=== PATIENT | female | born 1975 | race Caucasian/White ===

== ENCOUNTER → 2018-04-19 | Outpatient (CLI) | payer OTHER ==
[~2018-04-19] MED LIST: ADVIL200 M2 PO; BACTRIM DS TAB1 EACH PO; CITRATE OF MAG296 ML PO; COMPAZINE10 MG PO; KEFLEX500 MG PO; MACROBID 100 M100 M2 PO; MECLIZINE 25 MG25 M1 PO; NOHOMEMEDICATIONS; PHENAZOPYRIDIN200 M2 PO; VALACYCLOVIR500 MG PO
--- NOTE | 2018-04-19 11:36 | 2DMMODE ---
[place] [address] 2 D/M-MODE ECHOCARDIOGRAM Name: EDWAR CRUZ Room: [facility]#: [id number] Admission: 04/19/18 Attend Phys: Nay Ryan Discharge: Date of : 79 Date of Service: 04/19/18 1135 Report #: [id number] THIS REPORT FOR: //name// APPROVED REPORT Study performed: 04/19/2018 08:07:27 EXAM: Comprehensive 2D, Doppler, and color-flow Echocardiogram/ Bubble Study Patient Location: Out-Patient Status: routine BSA: 1.61 HR: 64 bpm BP: 115/80 mmHg Other Information Study Quality: Excellent Indications CVA/TIA Echo Enhancing Agent Indication: Rule out Shunt Agent(s) / Amount(s) Used: Agitated Saline 10 cc 2D Dimensions IVSd: 9.29 (7-11mm) LVOT Diam: 19.75 (18-24mm) LVDd: 43.62 mm PWd: 6.89 (7-11mm) Ascending Ao: 27.65 (22-36mm) LVDs: 28.81 (25-40mm) Aortic Root: 24.53 mm Volumes Left Atrial Volume (Systole) LA ESV Index: 12.50 mL/m2 Aortic Valve AoV Peak Edy.: 1.28 m/s AO Peak Gr.: 6.53 mmHg LVOT Max P.20 mmHg AO Mean Gr.: 3.58 mmHg LVOT Mean P.46 mmHg LVOT Max V: 0.89 m/s AO V2 VTI: 25.47 cm LVOT Mean V: 0.55 m/s BINU (VTI): 2.31 cm2 LVOT V1 VTI: 19.24 [place] [address] 2 D/M-MODE ECHOCARDIOGRAM Name: EDWAR CRUZ Room: [facility]#: [id number] Admission: 04/19/18 Attend Phys: Nay Ryan Discharge: Date of : 79 Date of Service: 04/19/18 1135 Report #: [id number] E/A Ratio: 1.33 MV Decel. Time: 151.25 ms MV E Max Edy.: 0.76 m/s MV PHT: 43.86 ms MVA (PHT): 5.02 cm2 TDI E/Lateral E': 4.75 E/Medial E': 5.43 Medial E' Edy.: 0.14 m/s Lateral E' Edy.: 0.16 m/s Pulmonary Valve PV Peak Edy.: 0.72 m/s PV Peak Gr.: 2.06 mmHg Tricuspid Valve RAP Estimate: 5.00 mmHg TR Peak Gr.: 14.36 mmHg RVSP: 19.36 mmHg PA Pressure: 19.36 mmHg Left Ventricle The left ventricle is normal size. There is normal LV segmental wall motion. There is normal left ventricular wall thickness. Left ventricular systolic function is normal. The left ventricular ejection fraction is within the normal range. LVEF is 55-60%. The left ventricular diastolic function is normal. Right Ventricle The right ventricle is normal size. The right ventricular systolic function is normal. Atria The left atrium size is normal. Injection of bubbles documented no interatrial shunt. The right atrium size is normal. Aortic Valve The aortic valve is normal in structure. No aortic regurgitation is present. There is no aortic valvular stenosis. Mitral Valve The mitral valve is normal in structure. There is no mitral valve regurgitation noted. No evidence of mitral valve stenosis. Tricuspid Valve The tricuspid valve is normal in structure. Trace to mild [place]icus[place] [address] 2 D/M-MODE ECHOCARDIOGRAM Name: EDWAR CRUZ Room: [facility]#: [id number] Admission: 04/19/18 Attend Phys: Nay Ryan Discharge: Date of : 79 Date of Service: 04/19/18 1135 Report #: [id number] Pulmonic Valve The pulmonary valve is normal in structure. There is no pulmonic valvular regurgitation. Great Vessels The aortic root is normal in size. IVC is normal in size and collapses >50% with inspiration. Pericardium There is no pericardial effusion. <Conclusion> LVEF is 55-60%. Injection of bubbles documented no interatrial shunt. <ELECTRONICALLY SIGNED> By: Sachin Schaeffer MD, FACC 04/19/18 1135 1135 1135 Sachin Schaeffer MD, FACC /INF
== END ==
LOC: M.CRD 07:35
DX: I63.9 Cerebral infarction, unspecified (principal); G45.9 Transient cerebral ischemic attack, unspecified; M35.9 Systemic involvement of connective tissue, unspecified; H54.7 Unspecified visual loss

== ENCOUNTER → 2020-11-18 | Outpatient (CLI) | payer BC | LOC: M.ULTRA 09:24 | PROVIDERS: ATTEND Specialist | DX: M79.89 Other specified soft tissue disorders (principal); Z98.890 Other specified postprocedural states ==

== ENCOUNTER → 2020-12-01 | Outpatient (CLI) | payer BC | LOC: M.MRI 07:30 | PROVIDERS: ATTEND Specialist | DX: S83.282A Other tear of lateral meniscus, current injury, left knee, initial encounter (principal); M79.89 Other specified soft tissue disorders; X58.XXXA Exposure to other specified factors, initial encounter; Y93.89 Activity, other specified; Y92.89 Other specified places as the place of occurrence of the external cause; Y99.8 Other external cause status ==

== ENCOUNTER → 2021-04-29 | Outpatient (CLI) | payer BC ==
--- NOTE | 2021-05-09 12:03 | EEG ---
[address] [address] EEG STUDY REPORT Name: EDWAR ARECHIGA Room: [facility]#: [id number] Admission: 04/29/21 Attend Phys: Antonio Churchill MD Discharge: Date of : 79 Report #: [id number] THIS REPORT FOR: cc: Nay Ryan Linda J. DO Khosla,Antonio Vivar MD ~ DATE OF SERVICE: 04/29/2021 This patient is having an episode of transient global amnesia. EEG was done by placing the electrode by standard 10-20 system of electrode placement. Both referential and sequential montages were used for recording. Background activity in this patient's EEG is about 10 Hz and 40 microvolt. The patient went to sleep that is associated with bilateral slowing and vertex sharp waves. Photic stimulation is unremarkable. Throughout the record, no active epileptiform activity was noticed. IMPRESSION: This patient's EEG is within normal limits. Thank you very much for this referral. <ELECTRONICALLY SIGNED> By: Antonio Churchill MD 05/09/21 1203 [id number] g Churchill MD /nt
== END ==
LOC: M.CRD 12:49
PROVIDERS: ATTEND Psychiatry & Neurology Neuromuscular Medicine
DX: G45.4 Transient global amnesia (principal)